=== PATIENT | female | born 1990 | race Caucasian/White ===

== ENCOUNTER 2016-12-16 17:15 | Observation (INO) | payer SELFPAY ==
[2016-12-16] MEDS ORDERED: Sodium Chloride 0.9% 2,000 ML IV STA (17:37)
--- NOTE | 2016-12-16 17:40 | ED PDOC ---
HPI: Psych/Substance Abuse Time Seen by Provider: 12/16/16 17:31 Chief Complaint (Nursing): Alcohol Ingestion Chief Complaint (Provider): Alcohol abuse ED Caveat: Acuity of Condition History Per: EMS, Other (friends) History/Exam Limitations: clinical condition Onset/Duration Of Symptoms: Days (today) Additional Complaint(s): Per friends, pt. was drinking a lot. She started getting sleepy and decreased responsiveness so they decided to bring her to the ED. Pt. not responding to commands. She was vomiting. Did not hit her head. No fall. Limited History due to pt. condition. Past Medical History Reviewed: Nursing Documentation, Vital Signs Vital Signs: Last Vital Signs Temp 98.3 F 12/16/16 17:18 Pulse 109 H 12/16/16 17:18 Resp 14 12/16/16 17:18 BP 147/87 12/16/16 17:18 Pulse Ox 100 12/16/16 17:18 - Medical History PMH: No Chronic Diseases - Surgical History Surgical History: No Surg Hx - Family History Family History: States: Unknown Family Hx - Social History Alcohol: Occasional - Allergies Allergies/Adverse Reactions: Allergies Allergy/AdvReac Type Severity Reaction Status Date / Time No Known Allergies Allergy Verified 12/16/16 17:18 Review of Systems Review Of Systems: ROS cannot be obtained secondary to pt's inabilty to answer questions. Physical Exam - Reviewed Nursing Documentation Reviewed: Yes Vital Signs Reviewed: Yes - Physical Exam Appears: Positive for: No Acute Distress Head Exam: Positive for: ATRAUMATIC, NORMAL INSPECTION, NORMOCEPHALIC Skin: Positive for: Normal Color, Warm, DRY Eye Exam: Positive for: PERRL. Negative for: Periorbital swelling Neck: Positive for: Supple Cardiovascular/Chest: Positive for: Regular Rate, Rhythm. Negative for: Edema Respiratory: Positive for: CNT, Normal Breath Sounds Gastrointestinal/Abdominal: Positive for: Normal Exam, Bowel Sounds, Soft. Negative for: Tenderness Back: Positive for: Normal Inspection Extremity: Positive for: Other (No rom; pt. not responsive to commands). Negative for: Tenderness Neurologic/Psych: Positive for: Other (limited neurologic exam; ). Negative for : Alert, Oriented - Laboratory Results Result Diagrams: 12/16/16 17:45 12/16/16 17:45 - ECG O2 Sat by Pulse Oximetry: 100 ED OBSERVATION Discharge: Yes Date of observation admission: 12/16/16 Time of observation admission: 17:42 - Observation admission statement Patient is being placed in observation because:: alcohol intoxication eval - Goals of Observation Goals of observation are:: Continue monitoring - Progress Note Progress Note: 12/16/16 20:54 Tolerated po. Ambulated with no issues. Pt. aknowledges drinking a lot. AAOx3. Family at bedside and will take pt. home. Disposition - Clinical Impression Clinical Impression: Alcohol abuse - Patient ED Disposition Is Patient to be Admitted: No Counseled Patient/Family Regarding: Studies Performed, Diagnosis, Need For Followup - Disposition Disposition: Routine/Home Disposition Time: 20:55 Condition: STABLE
[2016-12-16 17:48] LABS: BASO # 0.1 K/uL (0.0-0.2); BASO % 0.7 % (0.0-2.0); EOS # 0.1 K/uL (0.0-0.7); EOS % 1.6 % (0.0-4.0); HEMOGLOBIN 13.2 g/dL (12.0-16.0); LYMPH # 2.9 K/uL (1.0-4.3); LYMPH % 32.2 % (20.0-40.0); MEAN CELL VOLUME 88.4 fl (81.0-99.0); MEAN CORPUSCULAR HEMOGLOBIN 29.3 pg (27.0-31.0); MEAN CORPUSCULAR HGB CONC 33.1 g/dL (33.0-37.0); MEAN PLATELET VOLUME 8.6 fl (7.2-11.7); MONO # 1.1 K/uL (0.0-0.8); MONO % 12.5 % (0.0-10.0); NEUT # 4.8 K/uL (1.8-7.0); RBC 4.5 Mil/uL (3.80-5.20); RED CELL DISTRIBUTION WIDTH 14.1 % (11.5-14.5)
[2016-12-16 18:01] LABS: ALB/GLOB RATIO 1.4 (1.0-2.1); ALBUMIN 4.6 g/dL (3.5-5.0); ALT/SGPT 28 U/L (9-52); AST/SGOT 27 U/L (14-36); BLOOD UREA NITROGEN 13 mg/dl (7-17); CALCIUM 9.1 mg/dL (8.4-10.2); GFR AFRICAN-AMERICAN > 60; GFR NON-AFRICAN AMERICAN > 60
[2016-12-16 21:11] VITALS: BP 127/76; PULSE 93; RESP 16; TEMP 98; O2SAT 98
--- NOTE | 2016-12-16 21:47 | CARD ---
APPROVED REPORT EKG Measurement Heart [id number] <Conclusion> Normal sinus rhythm Possible Left atrial enlargement Left axis deviation Low voltage QRS Incomplete right bundle branch block Abnormal ECG
== END 2016-12-16 20:56 | disposition home or self-care (01) ==
LOC: H.ER 17:15 → H.EROBSV 17:42
PROVIDERS: ADMIT Emergency Medicine; ATTEND Emergency Medicine
DX: F10.10 Alcohol abuse, uncomplicated (principal)
CPT/HCPCS: 80053; 82948; 84702; 85025; 93005; 99283; G0378; G0480; J2405; J7040